=== PATIENT | male | born 1965 | race Caucasian/White ===

== ENCOUNTER → 2024-07-09 07:07 | Outpatient (REF) | payer BC, SELFPAY ==
[2024-07-09 08:53] LABS: % Basophils 0.7 % (0-2); % Eosinophils 4.5 % (0-6); % Immature Granulocytes 0.7 % (0-0.5); % Monocytes 9.5 % (1.7-9.3); % Neutrophils 68.6 % (42.2-75.2); Absolute Basophils 0.1 10^3/uL (0-0.2); Absolute Eosinophils 0.3 10^3/uL (0-0.7); Absolute Immature Granulocytes 0.1 10^3/uL (0-0.05); Absolute Lymphocytes 1.1 10^3/uL (1.2-3.4); Absolute Monocytes 0.6 10^3/uL (0.1-0.6); Absolute Neutrophils 4.6 10^3/uL (1.4-6.5); Hematocrit 46.9 % (39.0-52.0); Hemoglobin 15.8 g/dL (13.0-18.0); Mean Corp Hgb Conc. 33.7 g/dL (33.0-37.0); Mean Corpuscular Hgb 29.5 pg (27.0-31.0); Mean Corpuscular Volume 87.7 fL (80.0-94.0); Mean Platelet Volume 9.5 fL (7.4-10.4); Nucleated Red Blood Cells % 0 % (-); Platelet Count 268 10^3/uL (130-400); Red Blood Cell Count 5.35 10^6/uL (4.70-6.10); Red Cell Dist. Width 13.1 % (11.5-14.5); White Blood Cell Count 6.7 10^3/uL (4.8-10.8)
[2024-07-09 09:30] LABS: Glycohemoglobin (HgbA1c) 5.4 % (4.0-5.6)
[2024-07-09 10:31] LABS: Microalbumin, Random Urine 1.6 mg/dl (0.6-1.7); Microalbumin/creatinine Ratio 6.3 mg/g
[2024-07-09 11:33] LABS: ALT (SGPT) 43 U/L (0-50); AST (SGOT) 33 U/L (17-59); Albumin 4.1 g/dl (3.5-5.0); Alkaline Phosphatase 63 U/L (38-126); Blood Urea Nitrogen 17 mg/dl (9-20); Calcium 8.9 mg/dl (8.4-10.2); Carbon Dioxide 29 mmol/L (22-30); Chloride 103 mmol/L (98-107); Glucose 86 mg/dl (70-99); HDL Cholesterol 43 mg/dl; LDL Cholesterol, Calculated 152 mg/dl; Potassium 4.7 mmol/L (3.5-5.1); Sodium 144 mmol/L (135-145); Total Bilirubin 0.7 mg/dl (0.2-1.3); Total Cholesterol 228 mg/dl (50-199); Total Protein 7.5 g/dl (6.3-8.2); Triglyceride 165 mg/dl (10-149); Very Low Density Lipoprotein 33 mg/dl (0-30); eGFR > 60.00
== END ==
LOC: REG 07:07
PROVIDERS: ATTENDING PHYSICIAN Family Medicine
DX: E03.9 Hypothyroidism, unspecified (principal); E11.9 Type 2 diabetes mellitus without complications; E78.5 Hyperlipidemia, unspecified; I10 Essential (primary) hypertension; R53.83 Other fatigue
CPT/HCPCS: 36415; 80053; 80061; 82043; 82570; 83036; 84443; 85025

== ENCOUNTER → 2024-07-21 16:10 | Outpatient (REF) | payer BC, SELFPAY | LOC: RAD 16:10 | PROVIDERS: ATTENDING PHYSICIAN Family Medicine | DX: K63.2 Fistula of intestine (principal) | CPT/HCPCS: 74178; Q9967 ==

== ENCOUNTER → 2024-07-31 10:36 | Outpatient (REF) | payer BC, SELFPAY ==
[2024-07-31 12:16] LABS: TSH Reflex To Free T4 2.39 uIU/ml (0.47-4.68)
== END ==
LOC: REG 10:36
PROVIDERS: ATTENDING PHYSICIAN Internal Medicine; FAMILY PHYSICIAN Family Medicine
DX: E66.01 Morbid (severe) obesity due to excess calories (principal)
CPT/HCPCS: 36415; 84443

== ENCOUNTER → 2024-08-01 09:19 | Outpatient (REF) | payer BC, SELFPAY ==
--- NOTE | 2024-08-01 10:26 | CARDSERVLU ---
Echocardiogram with Lumason completed after protocol screening completed. Allergies verified.
Patent IV site: _Left AC_
IV site flushed with 0.9% NaCl pre and post administration.
Diluted bolus method utilized to enhance visualization of ventricular zhang.
Total volume given: __3.0_ mL
Patient tolerated all procedures well without complications.
#22 dahlia placed Left AC. Lumason given. INT d/c'd. pressure held. No bleeding noted.
== END ==
LOC: RCS 09:19
PROVIDERS: ATTENDING PHYSICIAN Internal Medicine; FAMILY PHYSICIAN Family Medicine
DX: R01.1 Cardiac murmur, unspecified (principal)
CPT/HCPCS: 93306; Q9950

== ENCOUNTER 2024-08-02 17:59 | Inpatient (IN) | payer BC, SELFPAY ==
[2024-08-02] VITALS (8 sets, daily range): BP systolic 85–147; BP diastolic 31–82; BMI 49.8
[2024-08-02 14:00] LABS: Hematocrit 46.8 % (39.0-52.0); Mean Corp Hgb Conc. 34.2 g/dL (33.0-37.0); Mean Corpuscular Hgb 28.9 pg (27.0-31.0); Mean Corpuscular Volume 84.5 fL (80.0-94.0); Mean Platelet Volume 9.1 fL (7.4-10.4); Platelet Count 246 10^3/uL (130-400); Red Blood Cell Count 5.54 10^6/uL (4.70-6.10); Red Cell Dist. Width 12.7 % (11.5-14.5); White Blood Cell Count 23.2 10^3/uL (4.8-10.8)
[2024-08-02 14:08] LABS: ALT (SGPT) 35 U/L (0-50); AST (SGOT) 33 U/L (17-59); Albumin 4.5 g/dl (3.5-5.0); Alkaline Phosphatase 65 U/L (38-126); Blood Urea Nitrogen 14 mg/dl (9-20); Calcium 8.8 mg/dl (8.4-10.2); Carbon Dioxide 25 mmol/L (22-30); Chloride 98 mmol/L (98-107); Glucose 92 mg/dl (70-99); Sodium 133 mmol/L (135-145); Total Bilirubin 1.4 mg/dl (0.2-1.3); Total Protein 7.9 g/dl (6.3-8.2); eGFR > 60.00
[2024-08-02 14:22] LABS: % Basophils 0.3 % (0-2); % Eosinophils 0.1 % (0-6); % Immature Granulocytes 0.8 % (0-0.5); % Lymphocytes 1.9 % (20.5-51.1); % Monocytes 5.4 % (1.7-9.3); % Neutrophils 91.5 % (42.2-75.2); Absolute Basophils 0.1 10^3/uL (0-0.2); Absolute Immature Granulocytes 0.2 10^3/uL (0-0.05); Absolute Lymphocytes 0.4 10^3/uL (1.2-3.4); Absolute Monocytes 1.2 10^3/uL (0.1-0.6); Absolute Neutrophils 21.2 10^3/uL (1.4-6.5); Nucleated Red Blood Cells % 0 % (-)
[2024-08-02 14:34] LABS: Troponin I < 0.012 ng/ml
--- NOTE | 2024-08-02 16:55 | ED.GENMED ---
History of Present Illness
General
Chief Complaint: Dizziness
Source: patient
Exam Limitations: none
Time Seen by Provider: 08/02/24 15:17
Nursing documentation reviewed up to this point in time: agreed with
History of Present Illness
History of Present Illness:
59-year-old male with past medical history of hypertension, ANNE MARIE presenting to the emergency department today with concerns of generalized weakness fatigue chills subjective fevers as well as left leg swelling and redness worsening over the past 24
hours.
Past History
Past History
ED Past Medical History: HTN and Other (Osteoarthritis); Negative CAD or Cancer
ED Past Surgical History: Orthopedic (Laminectomy)
Social History
Tobacco: Non-smoker
Alcohol: None
Drug: None
Personal:
Living: with family
Employment: Employed
Family History
Family History: Other (CHF)
Review of Systems
Review of Systems
Allergies reviewed?: Yes
All Other Systems: ROS reviewed and negative except as documented in HPI and ROS
Phy Exam
Physical Exam
Physical Exam:
GENERAL: Alert , in no apparent distress
EYE: pupils equal and reactive
NECK: Supple, no significant adenopathy.
ENT: o/p clr, mmm.
CARDIAC: Regular rate and rhythm .
LUNGS: Clear breath sounds bilaterally, no acute respiratory distress, no wheezes/rales/rhonchi
ABDOMEN: Soft, without focal tenderness, no r/g, no cvat
NEUROLOGICAL: Alert and oriented, no focal neuro deficits
SKIN: Significant redness swelling and warmth to the left leg mainly to the posterior calf but redness spreading to the anterior deutsch and up to the knee. Patient has additional red rash that he claims has been chronic to his thigh. Warm and dry,
skin intact.
MUSCULOSKELETAL: No edema, well perfused.
PSYCH: Normal and appropriate interaction.
Course
Orders/Labs/Results
Orders:
Orders
08/02/24 13:19
EKG [Electrocardiogram (*1)] Urgent
Reason for Study: Shortness of Breath
EKG- Treatment ONCE
08/02/24 13:36
Complete Blood Count/With Diff Urgent
Comprehensive Metabolic Panel Urgent
Troponin I Urgent
08/02/24 15:57
Lactic Acid Urgent
Blood Culture Q30M
BE Source: Blood/Venous
Specimen Description:
Blood Culture Q30M
BE Source: Blood/Venous
Specimen Description:
08/02/24 16:23
Vancomycin [Vancocin] 2,000 mg 0.9% Sodium Chloride 500 ml [Nss] 500 ml IV NOW
Abnormal Lab Results
08/02/24
13:36
WBC 23.2 H 10^3/uL
(4.8-10.8)
Abs Immat Gran (auto) 0.2 H 10^3/uL
(0-0.05)
Absolute Neuts (auto) 21.2 H 10^3/uL
(1.4-6.5)
Absolute Lymphs (auto) 0.4 L 10^3/uL
(1.2-3.4)
Absolute Monos (auto) 1.2 H 10^3/uL
(0.1-0.6)
Immature Gran % 0.8 H %
(0-0.5)
Neutrophils % 91.5 H %
(42.2-75.2)
Lymphocytes % 1.9 L %
(20.5-51.1)
Sodium 133 L mmol/L
(135-145)
Total Bilirubin 1.4 H mg/dl
(0.2-1.3)
08/02/24 13:36
08/02/24 13:36
Vital Signs
Initial and Last Documented VS:
Initial Vital Signs
Temp Pulse Resp BP Pulse Ox
98.3 F 98 18 138/78 98
08/02/24 13:27 08/02/24 13:27 08/02/24 13:27 08/02/24 13:27 08/02/24 13:27
Last Documented Vital Signs
Temp Pulse Resp BP Pulse Ox
98.7 F 94 28 147/67 95
08/02/24 16:58 08/02/24 17:17 08/02/24 17:17 08/02/24 16:58 08/02/24 17:17
MDM/Problems Addressed
MDM/Problems Addressed:
59-year-old male with past medical history of hypertension, ANNE MARIE presenting to the emergency department today with concerns of generalized weakness fatigue chills subjective fevers as well as left leg swelling and redness worsening over the past 24
hours. Upon arrival patient is afebrile heart rate in the high 90s initial blood pressure was in normal range but per my assessment blood pressure in the 80s over 30s. Patient comes to feel somewhat lightheaded. Left leg is significantly red and
swollen. Appear to be consistent with cellulitis. He claims that he is had cellulitis in the past. Patient started on IV antibiotics and plan to be admitted concerning patient with significant symptoms and altered vital signs secondary to likely
skin infection.
*Critical Care Note
Total Time (30-74mins, 75-104mins- exclusive of procedures): Not Applicable
ED Attending Note
-
Portions of this chart may have been created with voice recognition software.� Occasional wrong word or��sound alike� substitutions may have occurred due to the inherent limitations of voice recognition software.
Discharge Plan
Departure
Patient Disposition: Admit
Date of Disposition: 08/02/24
Time of Disposition: 16:59
Admit to: Med/Surg
Admit to doctor: Viiv
Presentation/result/management discussed w/ accepting MD/DO: Hospitalist
Patient with high blood pressure during this ER visit?: No
Condition: Good
Covid-19: Not Applicable
Discharge Problem:
Cellulitis
Prescriptions:
No Action
furosemide 40 mg Tablet
40 mg PO DAILY
ketoconazole 2 % Cream
1 applic TOPICAL DAILY
Rx Instructions:
under stomach
rosuvastatin 10 mg Tablet
10 mg PO DAILY
Referrals:
Jonathan Davis, [Family Provider] -
Interventions
Interventions:
*Risk Screen - Suicide Last Done: 08/02/24 13:27
*General Assessment Last Done: 08/02/24 13:27
*Neglect/Abuse Screening Last Done: 08/02/24 13:27
ED- Fall Risk Assessment Last Done: 08/02/24 16:59
*ED COVID-19 Vaccine History Last Done: 08/02/24 13:27
ED- Neurological Assessment Last Done: 08/02/24 16:59
ED Swallowing Screen Last Done: 08/02/24 16:59
Discharge Date and Time
Print Language: JAPANESE
[2024-08-02] MEDS: VANCOCIN 540 MG IV (16:56)
[2024-08-02 17:11] LABS: Lactic Acid 1.1 mmol/L (0.7-2.0)
--- NOTE | 2024-08-02 17:35 | HPS.HSE ---
Addendum entered and electronically signed by Dustin Campbell MD 08/02/24 18:15:
I saw and examined the patient.
The [employer]NA[employer] or PA's note was reviewed and I agree with the note.
Comment: 59-year-old male past medical history of morbid obesity, hypertension, hyperlipidemia, recent drainage of the lower abdominal fat pad resolving ulcer with antibiotics 1 month ago, now coming in for chills, left lower extremity pain, found
to have erythema and tenderness at the site. Patient has had multiple episodes of cellulitis in the past, acknowledges scratching quite often. Associate symptoms include dizziness which prompted hospital evaluation. Recent medications include
furosemide and statin that was started 2 days ago. Hypertensive upon examination, white count 23.2, sodium 133, total bilirubin 1.4, no right upper quadrant tenderness. Lactate 1.1. Exam notable for pitting edema of the bilateral lower
extremities as well as as significant erythema to the mid deutsch. Further bilateral inguinal and lower abdominal folds with rash, no obvious active infectious source, drainage, cellulitis.
Plan�received IV bolus, can hold for now. Hold Lasix. Continue cefazolin. Follow-up cultures. Follow line of demarcation. Should have follow-up with surgery, abdominal imaging for previous drainage site on the abdomen. Can give nystatin powder
for abdominal folds. Educated on weight loss. Will need sleep study outpatient. Also f/u MRI outpatient of the liver to evaluate ? Hemangioma
Original Note:
Family Physician
-
Family Physician: Jonathan Davis
Chief Complaint
-
Left lower extremity pain
History of Present Illness
Patient is a 59 y/o male past medical history of morbid obesity, hypertension and hyperlipidemia who presents with increased left lower extremity pain and dizziness. Patient reports difficulty with lower extremity edema, and prior episodes of
cellulitis in the past. Last night he developed significant chills, and this morning his left lower extremity was extremity was extremely painful. He reports associated dizziness which prompted him to come to the emergency department for
evaluation. Further discussions with patient's revealed he recently had an allergic reaction to Wegovy which he started for weight loss. He also saw a Cotton Baler earlier this week who started him on furosemide for high blood pressure and
edema, and rosuvastatin for high cholesterol.
Medical History
Past Medical History
Past Medical History: Reports Other
Additional Past Medical History:
Essential Hypertension
Hyperlipidemia
Morbid Obesity
Past Surgical History: Reports Other
Additional Past Surgical History:
Bilateral Knee Replacements
L2-L4 Laminectomy
Left Shoulder Surgery
Social History
Tobacco: Non-smoker
Alcohol: None
Personal:
Living: With Family
Family History
Family History: Not pertinent
Allergies / Home Medications
Allergies reflects when Allergies were last updated in [facility].
Home Medications with original date entered in [facility]
Allergy/Medication List:
Allergies
Allergy/AdvReac Type Severity Reaction Status Date / Time
pollen extracts Allergy Nasal Verified 08/02/24 13:27
congestion,
watery eyes
Home Medications
furosemide 40 mg tablet 40 mg PO DAILY 08/02/24
ketoconazole 2 % topical cream 1 applic topical DAILY 08/02/24
rosuvastatin 10 mg tablet 10 mg PO DAILY 08/02/24
Review of Systems
-
A 12 point ROS was completed and negative except as noted: Yes
Constitutional: Reports Chills
Respiratory: Reports Trouble Breathing (Intermittent dypnea on exertion); Denies Cough
Cardiac: Denies Chest Pain or Palpitations
Physical Exam
Vital Signs
Vital Signs
Temp Pulse Resp BP Pulse Ox
98.7 F 94 28 147/67 95
08/02/24 16:58 08/02/24 17:17 08/02/24 17:17 08/02/24 16:58 08/02/24 17:17
Physical Exam
General: Comfortable, Conversant and Morbidly Obese
HEENT: Anicteric and Moist mucous membranes
Respiratory: Clear and Non Labored Respirations
Cardiac: S1/S2, Regular Rhythm and Murmur (2/6 systolic murmur)
GI: Soft, Non Tender and Other (Protuberant)
Rectal: Deferred by Provider
Musculoskeletal: No Clubbing, No Cyanosis and Other (+1 pitting edema bilateral lower extremities, left greater than right)
Skin: Warm, Dry and Other (Significant erythema left lower extremity with increased warmth to touch; Bilateral inguinal folds with dark red/purple rash which patient reports is chronic)
Neuro: Awake, Alert, Oriented and Nonfocal/grossly intact
Psych: Calm
Laboratory Results
-
08/02/24 13:36
08/02/24 13:36
Laboratory Results
Lactic Acid 1.1 mmol/L (0.7-2.0) 08/02/24 15:57
Total Bilirubin 1.4 mg/dl (0.2-1.3) H 08/02/24 13:36
AST 33 U/L (17-59) 08/02/24 13:36
ALT 35 U/L (0-50) 08/02/24 13:36
Alkaline Phosphatase 65 U/L (38-126) 08/02/24 13:36
Troponin I < 0.012 ng/ml 08/02/24 13:36
Data Reviewed
-
Lab Data: Labs Reviewed by me
Old Records: Reviewed
Impression/Plan
-
Sepsis secondary to Left Lower Extremity Cellulitis
-Continue Ancef
Essential Hypertension / Lower Extremity Edema
-Hold Lasix
-Monitor Is&Os and Daily Weights
Hyperlipidemia
-Continue Crestor
Morbid Obesity
-Patient had recent allergic reaction to Wegovy
-Encourage weight loss
-Affects all aspects of care
DVT proph: Lovenox
Code Status:Full Code
--- NOTE | 2024-08-02 19:30 | PTCARENOTE ---
Pt arrived on unit from ED via stretcher. Pt ambulated to room with a standby assist of 1 person. Pt A&Ox3. Oriented to unit. Call irwin within reach. Care ongoing.
[2024-08-02] MEDS: LOVENOX 40 MG SC (21:02)
[2024-08-02] MEDS: ANCEF 10 IV (21:03)
[2024-08-02] MEDS: DESENEX/MITRAZOL/ZEASORB 1 APPLIC TOPICAL (21:03)
[2024-08-03 03:00] VITALS: BP 143/76
[2024-08-03] MEDS: ANCEF 10 IV ×3 (04:53→22:18)
[2024-08-03 06:00] VITALS: BMI 49.6
[2024-08-03 06:33] LABS: Hematocrit 40.1 % (39.0-52.0); Hemoglobin 13.8 g/dL (13.0-18.0); Mean Corp Hgb Conc. 34.4 g/dL (33.0-37.0); Mean Corpuscular Hgb 29.3 pg (27.0-31.0); Mean Corpuscular Volume 85.1 fL (80.0-94.0); Mean Platelet Volume 9.5 fL (7.4-10.4); Platelet Count 204 10^3/uL (130-400); Red Blood Cell Count 4.71 10^6/uL (4.70-6.10); Red Cell Dist. Width 12.8 % (11.5-14.5); White Blood Cell Count 14.2 10^3/uL (4.8-10.8)
[2024-08-03 07:00] VITALS: BP 147/64
[2024-08-03 07:04] LABS: ALT (SGPT) 24 U/L (0-50); AST (SGOT) 25 U/L (17-59); Albumin 3.7 g/dl (3.5-5.0); Alkaline Phosphatase 60 U/L (38-126); Blood Urea Nitrogen 13 mg/dl (9-20); Carbon Dioxide 26 mmol/L (22-30); Chloride 98 mmol/L (98-107); Estimated Creatinine Clearance 110 ml/min; Glucose 95 mg/dl (70-99); Potassium 3.3 mmol/L (3.5-5.1); Sodium 133 mmol/L (135-145); Total Bilirubin 0.7 mg/dl (0.2-1.3); Total Protein 6.7 g/dl (6.3-8.2); eGFR > 60.00
[2024-08-03] MEDS: CRESTOR 10 MG PO (07:37)
[2024-08-03] MEDS: DESENEX/MITRAZOL/ZEASORB 1 APPLIC TOPICAL ×2 (07:37→22:17)
[2024-08-03] MEDS: KCL ELIXIR 40 MEQ PO (10:04)
[2024-08-03 11:00] VITALS: BP 127/75
--- NOTE | 2024-08-03 13:14 | W.PN.HOSP.TC ---
Today's Communication/Plan
-
Monitor improvement of cellulitis with IV antibiotics
Benadryl for itching
Assessment / Plan
Assessment / Plan
General: Comfortable, Conversant and Morbidly Obese
HEENT: Anicteric and Moist mucous membranes
Respiratory: Clear and Non Labored Respirations
Cardiac: S1/S2, Regular Rhythm and Murmur (2/6 systolic murmur)
GI: Soft, Non Tender and Other (Protuberant)
Rectal: Deferred by Provider
Musculoskeletal: No Clubbing, No Cyanosis and Other (+1 pitting edema bilateral lower extremities, left greater than right)
Skin: Warm, Dry and Other (Significant erythema left lower extremity with increased warmth to touch - some of the affected cellulitis expanded over the demarcated line, some improved; overall less erythematous today; Bilateral inguinal folds with
dark red/purple rash which patient reports is chronic)
Neuro: Awake, Alert, Oriented and Nonfocal/grossly intact
Psych: Calm
Sepsis secondary to Left Lower Extremity Cellulitis
-Continue Ancef
�Follow-up cultures
� IVF as needed
Essential Hypertension / Lower Extremity Edema
-Hold Lasix
-Monitor Is&Os and Daily Weights
Hyponatremia
� Mild
Continue to monitor with resuscitation
Hypokalemia
� Monitor and replete
Hyperlipidemia
-Continue Crestor
Morbid Obesity
-Patient had recent allergic reaction to Wegovy
-Encourage weight loss
-Affects all aspects of care
�Will benefit from repeat sleep study outpatient
� Follow-up with obesity medicine outpatient
#Continued Diffuse itching
-Okay for Benadryl
-Educated on seeing dermatology as continued to have persistent itching as this will unfortunately lead to further episodes of cellulitis if not controlled
-Moisturizer
�Nystatin powder for abdominal folds
#1.6 cm right lower lobe lesion
� Follow-up MRI outpatient, already scheduled
# Millimeter nodule posterior right lower lobe
� Consistent with benign etiology as unchanged as 2011
DVT proph: Lovenox
Code Status:Full Code
Anticipated Discharge: 24 - 48 hours
Subjective/Interval History
-
Date of Service: August 03, 2024
Still with itching, some of the affected cellulitis expanded over the demarcated line, some improved; overall less erythematous today
Objective Data
-
Labs:
Laboratory Results
08/03/24
05:33
WBC 14.2 H
Hgb 13.8
Hct 40.1
Plt Count 204
Sodium 133 L
Potassium 3.3 L
Chloride 98
Carbon Dioxide 26
BUN 13
Creatinine 0.9
Glucose 95
Calcium 8.0 L
Total Bilirubin 0.7
AST 25
ALT 24
Alkaline Phosphatase 60
Vital Signs:
Vital Signs
Temp Pulse Resp BP Pulse Ox
97.9 F 69 16 127/75 98
08/03/24 11:00 08/03/24 11:00 08/03/24 11:00 08/03/24 11:00 08/03/24 11:00
I&O
08/02/24 08/03/24 08/04/24
06:59 06:59 06:59
Intake Total 240 / 240
Balance 240 / 240
Review of Systems
-
History Source: Patient
All other systems: Not reviewed unless documented
Data Reviewed
-
Labs: Labs Reviewed by me
[2024-08-03] MEDS: BENADRYL 50 MG PO (14:15)
[2024-08-03 15:00] VITALS: BP 133/78
[2024-08-03] MEDS: LOVENOX 40 MG SC (17:17)
[2024-08-03 19:00] VITALS: BP 142/72
[2024-08-03] MEDS: FLUSH (NSS) 2 FLUSH IV (22:21)
[2024-08-03 23:00] VITALS: BP 120/64
[2024-08-04 03:00] VITALS: BP 125/61
[2024-08-04 05:59] VITALS: BMI 49.4
[2024-08-04 06:13] LABS: Hematocrit 40.2 % (39.0-52.0); Hemoglobin 14.1 g/dL (13.0-18.0); Mean Corp Hgb Conc. 35.1 g/dL (33.0-37.0); Mean Corpuscular Hgb 29.7 pg (27.0-31.0); Mean Corpuscular Volume 84.8 fL (80.0-94.0); Mean Platelet Volume 9.5 fL (7.4-10.4); Platelet Count 211 10^3/uL (130-400); Red Blood Cell Count 4.74 10^6/uL (4.70-6.10); Red Cell Dist. Width 12.8 % (11.5-14.5); White Blood Cell Count 8.8 10^3/uL (4.8-10.8)
[2024-08-04] MEDS: FLUSH (NSS) 1 FLUSH IV (06:31)
[2024-08-04] MEDS: ANCEF 10 IV ×3 (06:32→21:34)
[2024-08-04 06:40] LABS: ALT (SGPT) 21 U/L (0-50); AST (SGOT) 23 U/L (17-59); Albumin 3.4 g/dl (3.5-5.0); Alkaline Phosphatase 58 U/L (38-126); Blood Urea Nitrogen 16 mg/dl (9-20); Calcium 8.6 mg/dl (8.4-10.2); Carbon Dioxide 31 mmol/L (22-30); Chloride 101 mmol/L (98-107); Estimated Creatinine Clearance 99 ml/min; Glucose 94 mg/dl (70-99); Potassium 4.2 mmol/L (3.5-5.1); Sodium 136 mmol/L (135-145); Total Bilirubin 0.5 mg/dl (0.2-1.3); Total Protein 6.5 g/dl (6.3-8.2); eGFR > 60.00
[2024-08-04 08:00] VITALS: BP 144/67
[2024-08-04] MEDS: DESENEX/MITRAZOL/ZEASORB 1 APPLIC TOPICAL ×2 (09:31→21:34)
[2024-08-04] MEDS: CRESTOR 10 MG PO (09:31)
[2024-08-04 11:50] VITALS: BP 131/70
--- NOTE | 2024-08-04 11:52 | W.PN.HOSP.TC ---
Today's Communication/Plan
-
Resume Lasix
c/w Ancef
f/w ID recommendations
Assessment / Plan
Assessment / Plan
Physical exam:
General: Comfortable, Conversant and Morbidly Obese
HEENT: Anicteric and Moist mucous membranes
Respiratory: Clear and Non Labored Respirations
Cardiac: S1/S2, Regular Rhythm and Murmur (2/6 systolic murmur)
GI: Soft, Non Tender and Other (Protuberant)
Rectal: Deferred by Provider
Musculoskeletal: No Clubbing, No Cyanosis and Other (+1 pitting edema bilateral lower extremities, left greater than right)
Skin: Warm, Dry and Other ( erythema is not spreading beyond demarcated line, non tender upon palpation).
Neuro: Awake, Alert, Oriented and Nonfocal/grossly intact
Psych: Calm
Sepsis secondary to Left Lower Extremity Cellulitis
-Continue Ancef
�Negative blood culture
No open wounds
WBC is normal now, afebrile
Will ask ID for input
Pt is anxious to go home.
Essential Hypertension / Lower Extremity Edema
-Resume Lasix
-Monitor Is&Os and Daily Weights
Hyponatremia
� Mild
Continue to monitor with resuscitation
Hypokalemia
� Monitor and replete
Hyperlipidemia
-Continue Crestor
Morbid Obesity
-Patient had recent allergic reaction to Wegovy
-Encourage weight loss which has been trying and lost some weight
#Continued Diffuse itching
-Okay for Benadryl
-Educated on seeing dermatology as continued to have persistent itching as this will unfortunately lead to further episodes of cellulitis if not controlled
-Moisturizer
�Nystatin powder for abdominal folds
#1.6 cm right lower lobe lesion
� Follow-up MRI outpatient, already scheduled
# Millimeter nodule posterior right lower lobe
� Consistent with benign etiology as unchanged as 2011
DVT proph: Lovenox
Code Status:Full Code
Total time spent to see the patient, examine the patient, review data and lab results, discuss the treatment plan with patient, nursing staff around 55 minutes
Anticipated Discharge: Within 24 hours
Subjective/Interval History
-
Date of Service: August 04, 2024
He denies worsening pain in leg
No chills or fever over night
Objective Data
-
Labs:
Laboratory Results
08/04/24
05:43
WBC 8.8
Hgb 14.1
Hct 40.2
Plt Count 211
Sodium 136
Potassium 4.2 D
Chloride 101
Carbon Dioxide 31 H
BUN 16
Creatinine 1.0
Glucose 94
Calcium 8.6
Total Bilirubin 0.5
AST 23
ALT 21
Alkaline Phosphatase 58
Vital Signs:
Vital Signs
Temp Pulse Resp BP Pulse Ox
97.9 F 69 16 144/67 98
08/04/24 08:00 08/04/24 08:00 08/04/24 08:00 08/04/24 08:00 08/04/24 08:00
I&O
08/03/24 08/04/24 08/05/24
06:59 06:59 06:59
Intake Total 1740 / 1740
Balance 1740 / 1740
[2024-08-04] MEDS: LASIX 40 MG PO (13:48)
[2024-08-04 15:30] VITALS: BP 97/54
--- NOTE | 2024-08-04 16:27 | CM ---
Alert awake oriented patient who lives with his Luan who lives in a 2 story home with 2 step to enter and 12 steps to bed and bathroom. He is independent in driving and in all activities of daily living.He was offered VN he declined need.
No VN hx / No SNF history
Pharmacy [facility]
PCP DR Davis
PLAN Home Declined VN
--- NOTE | 2024-08-04 17:27 | CON.ID ---
Chief Complaint / Past History
Chief Complaint
LLE cellulitis
History of Present Illness
59 year old male with class III obesity bmi 49 who left lwoer extremtiy pain, redness, swelling and fevers/chill since last night. Also with redness, swelling pruritus under the pannus which is long standing
since arrival here, afebrile, bp stable, wbc initially 23 now 8, plt 211,L shift was present on arrival, cr 1.0, blood cultures no growth to date, on cefazolin 2 gm iv q8 hours
Past History
Additional Past Medical History:
Essential Hypertension
Hyperlipidemia
Additional Past Surgical History:
Bilateral Knee Replacements
L2-L4 Laminectomy
Left Shoulder Surgery
Allergy History:
pollen extracts Allergy (Verified 08/02/24 13:27)
Nasal congestion, watery eyes
Medications Reviewed: Yes
Social History
Tobacco: Non-Smoker
Alcohol: None
Personal:
Family History
Family History: Not Pertinent
Review of Systems
Review of Systems
General: Fever and Chills
All systems: All other systems were reviewed and were negative
Vital Signs
Temp Pulse Resp BP Pulse Ox
97.4 F 74 16 97/54 97
08/04/24 15:30 08/04/24 15:30 08/04/24 15:30 08/04/24 15:30 08/04/24 15:30
Physical Exam
Physical Exam
Constitutional: No Acute Distress
Cardiovascular: Regular Rate and S1/S2; Negative Murmur or Rub
Pulmonary: Clear and Symmetric; Negative Wheezes, Rales or Rhonchi
Gastrointestinal: Soft, Non Tender, Non Distended and Normal Bowel Sounds
Skin: Warm, Dry, Rash (left leg, warm, swollen, tender) and Other (redness, swelling tenderness under the pannus); Negative Jaundice
Lab / Diagnostic Study Results
08/04/24 05:43
08/04/24 05:43
Abs Immat Gran (auto) 0.2 10^3/uL (0-0.05) H 08/02/24 13:36
Absolute Neuts (auto) 21.2 10^3/uL (1.4-6.5) H 08/02/24 13:36
Absolute Lymphs (auto) 0.4 10^3/uL (1.2-3.4) L 08/02/24 13:36
Absolute Monos (auto) 1.2 10^3/uL (0.1-0.6) H 08/02/24 13:36
Absolute Basos (auto) 0.1 10^3/uL (0-0.2) 08/02/24 13:36
Immature Gran % 0.8 % (0-0.5) H 08/02/24 13:36
Neutrophils % 91.5 % (42.2-75.2) H 08/02/24 13:36
Lymphocytes % 1.9 % (20.5-51.1) L 08/02/24 13:36
Monocytes % 5.4 % (1.7-9.3) 08/02/24 13:36
Eosinophils % 0.1 % (0-6) 08/02/24 13:36
Basophils % 0.3 % (0-2) 08/02/24 13:36
Lactic Acid 1.1 mmol/L (0.7-2.0) 08/02/24 15:57
Microbiology Results
Micro:
08/02/24 15:57 Blood Culture - Preliminary
Blood/Venous No Growth in 48 hours- Final report to follow
08/02/24 15:57 Blood Culture - Preliminary
Blood/Venous No Growth in 48 hours- Final report to follow
Assessment / Plan
Nonpurulent cellulitis
Xerosis
Class III obesity
- cefazolin 2 gm IV q6 hours for now
- compression/elevation
- emollients
- will reassess tomorrow, rate of response generally depends on compliance with compression and elevation
Intertrigo - chronic
- qtc 460 - acceptable
- single dose of fluconazole 800 mg now, then likely 400 mg q week x3 more weeks
- continue topicals
[2024-08-04] MEDS: DIFLUCAN 800 MG PO (18:23)
[2024-08-04] MEDS: LOVENOX 40 MG SC (18:24)
[2024-08-04 19:35] VITALS: BP 152/79
[2024-08-04 23:35] VITALS: BP 149/70
[2024-08-05] MEDS: ANCEF 10 IV ×2 (02:57→08:51)
[2024-08-05 03:55] VITALS: BP 164/80
[2024-08-05 06:00] VITALS: BMI 49.2
[2024-08-05 07:29] VITALS: BP 148/86
[2024-08-05] MEDS: LASIX 40 MG PO (08:51)
[2024-08-05] MEDS: CRESTOR 10 MG PO (08:51)
[2024-08-05] MEDS: DESENEX/MITRAZOL/ZEASORB 1 APPLIC TOPICAL (09:00)
[2024-08-05] MEDS: FLUSH (NSS) 2 FLUSH IV (09:01)
--- NOTE | 2024-08-05 09:42 | W.PN.HOSP.TC ---
Today's Communication/Plan
-
dc
Assessment / Plan
Assessment / Plan
Physical exam:
General: Comfortable, Conversant and Morbidly Obese
HEENT: Anicteric and Moist mucous membranes
Respiratory: Clear and Non Labored Respirations
Cardiac: S1/S2, Regular Rhythm and Murmur (2/6 systolic murmur)
GI: Soft, Non Tender and Other (Protuberant)
Rectal: Deferred by Provider
Musculoskeletal: No Clubbing, No Cyanosis and Other (+1 pitting edema bilateral lower extremities, left greater than right)
Skin: Warm, Dry and Other ( erythema is not spreading beyond demarcated line, non tender upon palpation).
Neuro: Awake, Alert, Oriented and Nonfocal/grossly intact
Psych: Calm
Sepsis secondary to Left Lower Extremity Cellulitis
-Continue Ancef, increased to 2 gm
�Negative blood culture
No open wounds
WBC is normal now, afebrile
Appreciate ID input , to finish oral TX for 2 weeks and weekly anti-fungal for 3 weeks.
Essential Hypertension / Lower Extremity Edema
-Resumed Lasix
-Monitored Is&Os and Daily Weights
Hyponatremia
� was Mild
Resolved.
Hypokalemia
replaced.
Hyperlipidemia
-Continue Crestor
Morbid Obesity
-Patient had recent allergic reaction to Wegovy
-Encourage weight loss which has been trying and lost some weight
#Continued Diffuse itching
-Okay for Benadryl
-Educated on seeing dermatology as continued to have persistent itching as this will unfortunately lead to further episodes of cellulitis if not controlled
-Moisturizer
�Nystatin powder for abdominal folds
#1.6 cm right lower lobe lesion
� Follow-up MRI outpatient, already scheduled
# Millimeter nodule posterior right lower lobe
� Consistent with benign etiology as unchanged as 2011
DVT proph: Lovenox
Code Status:Full Code
Total discharge time spent to see the patient, examine the patient, review data and lab results, discuss the discharge plan with patient, ID doctor, nursing staff around 65 minutes
Anticipated Discharge: Today
Subjective/Interval History
-
Date of Service: August 05, 2024
He feels better and no pain in left leg
Objective Data
-
Vital Signs:
Vital Signs
Temp Pulse Resp BP Pulse Ox
97.8 F 66 17 148/86 95
08/05/24 07:29 08/05/24 08:51 08/05/24 07:29 08/05/24 08:51 08/05/24 07:29
I&O
08/04/24 08/05/24 08/06/24
06:59 06:59 06:59
Intake Total 1740 / 1740 1620 / 1620
Balance 1740 / 1740 1620 / 1620
--- NOTE | 2024-08-05 10:14 | W.PN.UPDATE ---
Update Note
Progress Note Update
spoke with hospitalist
can switch to keflex 1000 mg PO QID x14 days
continue fluconazole 400 mg q week x3 more doses
AW
[2024-08-05 11:03] VITALS: BP 131/77
--- NOTE | 2024-08-05 11:31 | CM ---
MD entered order for discharge.
Pt said his Luan .
will drive him home
Offered VN he declined need.
PLAN Home Declined VN
--- NOTE | 2024-08-05 13:56 | W.DCSUMMARY ---
Discharge Summary
Discharge Data
Date of Admission: 08/02/24
Date of Discharge: 08/05/24
-
Pending Results: No
Hospital Course
59 years old male presented with chills, left lower extremity pain and redness. Patient was found to have left lower extremity cellulitis. Patient reported history of multiple episodes of cellulitis in the past with skin pruritus that he did
scratching quite often. Patient was given IV Cefazolin and admitted to the hospital. He did not have fevers, white blood cell count went to normal level. His cellulitis looked unchanged and ID was consulted. Patient was diagnosed with nonpurulent
cellulitis, Xerosis and chronic intertrigo. He was started on high dose Cefazolin due to patient's weight. His left leg was elevated with application of a compression dressing to help with swelling and edema, subsequently the erythema started to
subside and recession of the redness with resolution of the swelling. Patient did not have tenderness in left lower extremity. He was given fluconazole one time dose then weekly dose for 3 more weeks for intertrigo. Patient was counseled regarding
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 Infectious disease doctor gave recommendations for antibiotic therapy. Discharge instructions were discussed with patient and his
over the phone. Patient remained hemodynamically stable and was discharged home in stable condition.
Discharge Plan
-
Patient Disposition: Home (Routine Discharge)
Discharge Diagnosis/Procedures: Cellulitis
You were seen by ID doctor. Take Keflex 2 ( capsules or tablets) four times a day for 2 weeks, take Fluconazole ( anti-fungal) 400 mg every Sunday for 3 times.
Diet: As tolerated
Referrals:
Jonathan Davis DO [Family Provider] - in one to two weeks
Chhaya Hirsch MD [Active] - (As needed)
Prescriptions:
New
cephalexin 500 mg capsule
1,000 mg PO Q6H Qty: 112 0RF
fluconazole 200 mg tablet
400 mg PO WEEKLY Qty: 6 0RF
Rx Instructions:
2 tablets every Sunday for 3 weeks only
Saccharomyces boulardii [Florastor] 250 mg capsule
250 mg PO BID Qty: 28 0RF
Continued
furosemide 40 mg Tablet
40 mg PO DAILY
ketoconazole 2 % Cream
1 applic TOPICAL DAILY
Rx Instructions:
under stomach
rosuvastatin 10 mg Tablet
10 mg PO DAILY
Discharge Orders:
Discharge Patient (As Directed); Ordered 08/05/24
Ordered By: Jennifer Merlos
Discharge Date and Time
Discharge Date/Time: 08/05/24 11:45
Print Language: HEBREW
== END 2024-08-05 11:45 | disposition home or self-care (01) | DRG 872 ==
LOC: 3 WEST ACU 17:59
PROVIDERS: Emergency Medicine; Physician Assistant; Physician Assistant Medical; ADMITTING PHYSICIAN Internal Medicine; ATTENDING PHYSICIAN Internal Medicine; CONSULT PHYSICIAN Student in an Organized Health Care Education/Training Program; EMERGENCY PHYSICIAN Emergency Medicine; FAMILY PHYSICIAN Family Medicine
DX: A41.9 Sepsis, unspecified organism (principal); L03.116 Cellulitis of left lower limb; Z68.42 Body mass index [BMI] 45.0-49.9, adult; E87.1 Hypo-osmolality and hyponatremia; E66.01 Morbid (severe) obesity due to excess calories; E87.6 Hypokalemia; L30.4 Erythema intertrigo; I10 Essential (primary) hypertension; E78.5 Hyperlipidemia, unspecified
CPT/HCPCS: 80053; 83605; 84484; 85025; 85027; 87040; 93005; 96365; 96366; 99284

== ENCOUNTER → 2024-08-28 07:07 | Outpatient (REF) | payer BC, SELFPAY ==
[2024-08-28 08:11] LABS: % Basophils 0.4 % (0-2); % Eosinophils 7.9 % (0-6); % Immature Granulocytes 0.6 % (0-0.5); % Lymphocytes 15.9 % (20.5-51.1); % Monocytes 12.1 % (1.7-9.3); % Neutrophils 63.1 % (42.2-75.2); Absolute Eosinophils 0.4 10^3/uL (0-0.7); Absolute Lymphocytes 0.8 10^3/uL (1.2-3.4); Absolute Monocytes 0.6 10^3/uL (0.1-0.6); Absolute Neutrophils 3.3 10^3/uL (1.4-6.5); Hematocrit 47.6 % (39.0-52.0); Hemoglobin 16.2 g/dL (13.0-18.0); Mean Corpuscular Volume 85.2 fL (80.0-94.0); Mean Platelet Volume 9.9 fL (7.4-10.4); Nucleated Red Blood Cells % 0 % (-); Platelet Count 215 10^3/uL (130-400); Red Blood Cell Count 5.59 10^6/uL (4.70-6.10); Red Cell Dist. Width 12.6 % (11.5-14.5); White Blood Cell Count 5.2 10^3/uL (4.8-10.8)
[2024-08-28 09:09] LABS: ALT (SGPT) 64 U/L (0-50); AST (SGOT) 41 U/L (17-59); Albumin 4.3 g/dl (3.5-5.0); Alkaline Phosphatase 61 U/L (38-126); Blood Urea Nitrogen 19 mg/dl (9-20); Calcium 9.1 mg/dl (8.4-10.2); Carbon Dioxide 32 mmol/L (22-30); Chloride 97 mmol/L (98-107); Glucose 88 mg/dl (70-99); HDL Cholesterol 34 mg/dl; LDL Cholesterol, Calculated 60 mg/dl; Potassium 3.8 mmol/L (3.5-5.1); Sodium 139 mmol/L (135-145); Total Bilirubin 1.1 mg/dl (0.2-1.3); Total Cholesterol 118 mg/dl (50-199); Total Protein 7.3 g/dl (6.3-8.2); Triglyceride 120 mg/dl (10-149); Very Low Density Lipoprotein 24 mg/dl (0-30); eGFR > 60.00
[2024-08-28 09:17] LABS: PSA, Total - Screen 1.78 ng/ml (0.0-4.0); TSH 2.71 uIU/ml (0.47-4.68)
== END ==
LOC: REG 07:07
PROVIDERS: ATTENDING PHYSICIAN Family Medicine
DX: R60.9 Edema, unspecified (principal); I10 Essential (primary) hypertension; E78.2 Mixed hyperlipidemia
CPT/HCPCS: 36415; 80053; 80061; 84443; 85025; G0103

== ENCOUNTER → 2024-10-07 07:06 | Outpatient (REF) | payer BC, SELFPAY ==
[2024-10-07 08:22] LABS: % Basophils 0.3 % (0-2); % Eosinophils 2.5 % (0-6); % Immature Granulocytes 1.6 % (0-0.5); % Monocytes 9.7 % (1.7-9.3); % Neutrophils 71.9 % (42.2-75.2); Absolute Eosinophils 0.2 10^3/uL (0-0.7); Absolute Immature Granulocytes 0.1 10^3/uL (0-0.05); Absolute Lymphocytes 0.9 10^3/uL (1.2-3.4); Absolute Monocytes 0.7 10^3/uL (0.1-0.6); Absolute Neutrophils 4.8 10^3/uL (1.4-6.5); Hematocrit 43.6 % (39.0-52.0); Hemoglobin 15.1 g/dL (13.0-18.0); Mean Corp Hgb Conc. 34.6 g/dL (33.0-37.0); Mean Corpuscular Hgb 29.2 pg (27.0-31.0); Mean Corpuscular Volume 84.2 fL (80.0-94.0); Mean Platelet Volume 9.8 fL (7.4-10.4); Nucleated Red Blood Cells % 0 % (-); Platelet Count 240 10^3/uL (130-400); Red Blood Cell Count 5.18 10^6/uL (4.70-6.10); Red Cell Dist. Width 12.9 % (11.5-14.5); White Blood Cell Count 6.7 10^3/uL (4.8-10.8)
[2024-10-07 08:50] LABS: ALT (SGPT) 43 U/L (0-50); AST (SGOT) 31 U/L (17-59); Alkaline Phosphatase 68 U/L (38-126); Blood Urea Nitrogen 12 mg/dl (9-20); Calcium 9.5 mg/dl (8.4-10.2); Carbon Dioxide 29 mmol/L (22-30); Chloride 99 mmol/L (98-107); Glucose 80 mg/dl (70-99); Potassium 3.6 mmol/L (3.5-5.1); Sodium 137 mmol/L (135-145); Total Bilirubin 0.9 mg/dl (0.2-1.3); Total Protein 6.8 g/dl (6.3-8.2); Uric Acid 8.9 mg/dl (3.5-8.5); eGFR > 60.00
[2024-10-07 09:15] LABS: Glycohemoglobin (HgbA1c) 5.4 % (4.0-5.6); TSH Reflex To Free T4 2.59 uIU/ml (0.47-4.68)
[2024-10-08 16:49] LABS: Insulin, Random 8 uIU/mL
== END ==
LOC: REG 07:06
PROVIDERS: ATTENDING PHYSICIAN Physician Assistant; FAMILY PHYSICIAN Family Medicine
DX: Z13.1 Encounter for screening for diabetes mellitus (principal); E88.810 Metabolic syndrome; E78.2 Mixed hyperlipidemia; I10 Essential (primary) hypertension; E66.01 Morbid (severe) obesity due to excess calories
CPT/HCPCS: 36415; 80053; 83036; 83525; 83735; 84443; 84550; 85025

== ENCOUNTER 2024-10-20 14:07 | Emergency (ER) | payer BC, SELFPAY ==
[2024-10-20 14:12] VITALS: BP 151/76
[2024-10-20 14:37] LABS: % Basophils 0.4 % (0-2); % Eosinophils 2.9 % (0-6); % Immature Granulocytes 0.4 % (0-0.5); % Lymphocytes 9.2 % (20.5-51.1); % Monocytes 8.1 % (1.7-9.3); Absolute Eosinophils 0.3 10^3/uL (0-0.7); Absolute Lymphocytes 0.8 10^3/uL (1.2-3.4); Absolute Monocytes 0.7 10^3/uL (0.1-0.6); Absolute Neutrophils 7.2 10^3/uL (1.4-6.5); Hematocrit 43.1 % (39.0-52.0); Mean Corp Hgb Conc. 34.8 g/dL (33.0-37.0); Mean Corpuscular Hgb 28.7 pg (27.0-31.0); Mean Corpuscular Volume 82.6 fL (80.0-94.0); Mean Platelet Volume 9.2 fL (7.4-10.4); Nucleated Red Blood Cells % 0 % (-); Platelet Count 234 10^3/uL (130-400); Red Blood Cell Count 5.22 10^6/uL (4.70-6.10); Red Cell Dist. Width 13.2 % (11.5-14.5); White Blood Cell Count 9.1 10^3/uL (4.8-10.8)
[2024-10-20 14:53] LABS: ALT (SGPT) 33 U/L (0-50); AST (SGOT) 28 U/L (17-59); Alkaline Phosphatase 61 U/L (38-126); Blood Urea Nitrogen 18 mg/dl (9-20); Calcium 9.6 mg/dl (8.4-10.2); Carbon Dioxide 30 mmol/L (22-30); Chloride 99 mmol/L (98-107); Glucose 104 mg/dl (70-99); Potassium 3.9 mmol/L (3.5-5.1); Sodium 136 mmol/L (135-145); Total Bilirubin 0.8 mg/dl (0.2-1.3); Total Protein 6.8 g/dl (6.3-8.2); eGFR > 60.00
[2024-10-20 15:05] LABS: Troponin I < 0.012 ng/ml
[2024-10-20 16:01] VITALS: BP 149/67
[2024-10-20 17:04] VITALS: BP 144/67; BMI 43.8
--- NOTE | 2024-10-20 17:21 | ED.GENMED ---
History of Present Illness
General
Chief Complaint: Chest Pain
Time Seen by Provider: 10/20/24 17:00
History of Present Illness
History of Present Illness:
59-year-old male presents the emergency department for evaluation of right upper chest wall pain radiating to the scapula for the past week. Pain was mild at first and worsening. No obvious provoking or palliating factors. Not pleuritic in
nature. No upper extremity paresthesias or shortness of breath. Denies any social component. No associated fevers or chills. Notes that he has lost approximately 70 pounds in the last several months due to a dedicated diet and exercise program.
Past History
Past History
ED Past Medical History: HTN and Other (Osteoarthritis); Negative CAD or Cancer
ED Past Surgical History: Orthopedic (Laminectomy)
Social History
Tobacco: Non-smoker
Alcohol: None
Drug: None
Personal:
Living: with family
Employment: Employed
Family History
Family History: Other (CHF)
Review of Systems
Review of Systems
Allergies reviewed?: Yes
All Other Systems: ROS reviewed and negative except as documented in HPI and ROS
Phy Exam
Physical Exam
Physical Exam:
GEN: Well appearing, NAD, WDWN
HEENT: Oral mucosa moist, no scleral icterus
Cardiac: Regular rate and rhythm, 3/6 holosystolic murmur
Lung: No respiratory distress, no tachypnea, lungs clear to auscultation bilaterally
MSK: No gross deformity or injuries. No provoked chest wall tenderness or scapular back tenderness
Skin: Good color, no pallor or jaundice, widespread maculopapular lesions to the anterior and posterior torso as well as the upper arms bilaterally
Neuro: AO x3, moves all extremities freely
Psych: Calm, cooperative
Scores
Heart Score for Chest Pain Patients
STEMI patient?: Not applicable
Course
Orders/Labs/Results
Orders:
Orders
10/20/24 14:11
Electrocardiogram (*1) Stat
Comment: ALREADY DONE IN ED
10/20/24 14:22
Complete Blood Count/With Diff Urgent
Comprehensive Metabolic Panel Urgent
Troponin I Urgent
10/20/24 17:21
CR Chest - 2 Views Urgent
Comment:
Reason For Exam: R upper chest pain
Abnormal Lab Results
10/20/24
14:22
Absolute Neuts (auto) 7.2 H 10^3/uL
(1.4-6.5)
Absolute Lymphs (auto) 0.8 L 10^3/uL
(1.2-3.4)
Absolute Monos (auto) 0.7 H 10^3/uL
(0.1-0.6)
Neutrophils % 79.0 H %
(42.2-75.2)
Lymphocytes % 9.2 L %
(20.5-51.1)
Glucose 104 H mg/dl
(70-99)
10/20/24 14:22
10/20/24 14:22
Vital Signs
Initial and Last Documented VS:
Initial Vital Signs
Temp Pulse Resp BP Pulse Ox
97.9 F 59 20 151/76 98
10/20/24 14:12 10/20/24 14:12 10/20/24 14:12 10/20/24 14:12 10/20/24 14:12
Last Documented Vital Signs
Temp Pulse Resp BP Pulse Ox
97.9 F 53 17 160/70 95
10/20/24 14:12 10/20/24 18:00 10/20/24 18:00 10/20/24 18:00 10/20/24 18:00
MDM/Problems Addressed
MDM/Problems Addressed:
Patient's workup is reassuring. Pain has no obvious modifying factors. May represent a brachial neuritis given the patient's report of right arm heaviness. No focal neurologic deficits. Will trial a course of steroids for supportive care
*Critical Care Note
Total Time (30-74mins, 75-104mins- exclusive of procedures): Not Applicable
ED Attending Note
-
Portions of this chart may have been created with voice recognition software.� Occasional wrong word or��sound alike� substitutions may have occurred due to the inherent limitations of voice recognition software.
Discharge Plan
Departure
Patient Disposition: Home (Routine Discharge)
Date of Disposition: 10/20/24
Time of Disposition: 18:15
Patient with high blood pressure during this ER visit?: No
Discharge Problem:
Brachial neuritis of right upper extremity
Instructions: Radiculopathy of the neck and back (including sciatica)
Prescriptions:
New
methylprednisolone [Medrol (Brayden)] 4 mg tablets,dose pack
See Rx Instructions .ROUTE .COMPLEX Qty: 21 0RF
Rx Instructions:
orally per package directions
No Action
furosemide 40 mg Tablet
40 mg PO DAILY
ketoconazole 2 % Cream
1 applic TOPICAL DAILY
Rx Instructions:
under stomach
rosuvastatin 10 mg Tablet
10 mg PO DAILY
cephalexin 500 mg capsule
1,000 mg PO Q6H Qty: 112 0RF
fluconazole 200 mg tablet
400 mg PO WEEKLY Qty: 6 0RF
Rx Instructions:
2 tablets every Sunday for 3 weeks only
Saccharomyces boulardii [Florastor] 250 mg capsule
250 mg PO BID Qty: 28 0RF
Referrals:
Jonathan Davis DO [Family Provider] -
Interventions
Interventions:
*Risk Screen - Suicide Last Done: 10/20/24 14:12
*General Assessment Last Done: 10/20/24 14:12
*Neglect/Abuse Screening Last Done: 10/20/24 14:12
*ED- Fall Risk Assessment Last Done: 10/20/24 17:04
*ED COVID-19 Vaccine History Last Done: 10/20/24 17:04
*Nursing Disposition Last Done: 10/20/24 18:22
ED- Cardiac Assessment Last Done: 10/20/24 17:04
Discharge Date and Time
Discharge Date/Time: 10/20/24 18:22
Print Language: DANISH
[2024-10-20 18:00] VITALS: BP 160/70
== END 2024-10-20 18:22 | disposition home or self-care (01) ==
LOC: EMR 14:07
PROVIDERS: Emergency Medicine; EMERGENCY PHYSICIAN Emergency Medicine; FAMILY PHYSICIAN Family Medicine
DX: M54.12 Radiculopathy, cervical region (principal); I10 Essential (primary) hypertension; Z82.49 Family history of ischemic heart disease and other diseases of the circulatory system
CPT/HCPCS: 99283; 71046; 80053; 84484; 85025; 93005

== ENCOUNTER → 2024-11-14 12:08 | Outpatient (REF) | payer BC, SELFPAY | LOC: HWRCS 12:08 | PROVIDERS: ATTENDING PHYSICIAN Internal Medicine; FAMILY PHYSICIAN Family Medicine | DX: R07.9 Chest pain, unspecified (principal) | CPT/HCPCS: 78452; 93017; A9500; J2785 ==

== ENCOUNTER 2025-02-12 15:43 | Emergency (ER) | payer BC, SELFPAY ==
--- NOTE | 2025-02-12 17:20 | ED.GENMED ---
History of Present Illness
General
Chief Complaint: Skin Surface Trauma
Source: patient
Exam Limitations: none
Time Seen by Provider: 02/12/25 17:09
History of Present Illness
History of Present Illness:
59-year-old male presents with laceration to right lateral deutsch he sustained today. He cut it on a piece of his grill. He takes a baby aspirin but was having a lot of difficulty getting the bleeding to stop at home. No other complaints at this
time
Past History
Past History
ED Past Medical History: HTN and Other (Osteoarthritis); Negative CAD or Cancer
ED Past Surgical History: Orthopedic (Laminectomy)
Social History
Tobacco: Non-smoker
Alcohol: None
Drug: None
Personal:
Living: with family
Employment: Employed
Family History
Family History: Other (CHF)
Phy Exam
Physical Exam
Physical Exam:
General: Well-appearing male no acute respiratory distress
HEENT: Normocephalic atraumatic
Skin: 2 cm superficial skin tear/flap type laceration to the lateral aspect of the right distal deutsch. No current bleeding. Patient does however have bruises over the arms. is just concerned about his bruisability lately. He bled quite a bit
from this laceration.
Course
Orders/Labs/Results
Orders:
Orders
02/12/25 17:42
Complete Blood Count/With Diff Urgent
Comprehensive Metabolic Panel Urgent
PTT Urgent
Prothrombin Time Urgent
Abnormal Lab Results
02/12/25
17:42
Absolute Neuts (auto) 7.3 H 10^3/uL
(1.4-6.5)
Absolute Monos (auto) 0.9 H 10^3/uL
(0.1-0.6)
Lymphocytes % 13.9 L %
(20.5-51.1)
BUN 24 H mg/dl
(9-20)
02/12/25 17:42
02/12/25 17:42
Vital Signs
Initial and Last Documented VS:
Initial Vital Signs
Temp Pulse Resp Pulse Ox
99.2 F 85 18 98
02/12/25 15:46 02/12/25 15:46 02/12/25 15:46 02/12/25 15:46
Last Documented Vital Signs
Temp Pulse Resp Pulse Ox
99.2 F 85 18 98
02/12/25 15:46 02/12/25 15:46 02/12/25 15:46 02/12/25 17:23
MDM/Problems Addressed
Differential Diagnosis Includes:
Skin tear right lateral deutsch. No current bleeding. Will redress with nonstick gauze and a wrap. Labs pending to check into his bruising and bleeding lately
*Pulse Oximetry
SaO2: 98
Patient hypoxic: no
*Critical Care Note
Total Time (30-74mins, 75-104mins- exclusive of procedures): Not Applicable
Update Note
Update Note:
Labs reviewed platelets normal no abnormal findings in the blood work. Dressing applied to the wound. Stable for
ED Attending Note
-
Portions of this chart may have been created with voice recognition software.� Occasional wrong word or��sound alike� substitutions may have occurred due to the inherent limitations of voice recognition software.
Discharge Plan
Departure
Patient Disposition: Home (Routine Discharge)
Date of Disposition: 02/12/25
Time of Disposition: 18:18
Patient with high blood pressure during this ER visit?: No
Discharge Problem:
Laceration
Instructions: Wound Care (DC)
Prescriptions:
No Action
furosemide 40 mg Tablet
40 mg PO DAILY
ketoconazole 2 % Cream
1 applic TOPICAL DAILY
Rx Instructions:
under stomach
rosuvastatin 10 mg Tablet
10 mg PO DAILY
cephalexin 500 mg capsule
1,000 mg PO Q6H Qty: 112 0RF
fluconazole 200 mg tablet
400 mg PO WEEKLY Qty: 6 0RF
Rx Instructions:
2 tablets every Sunday for 3 weeks only
Saccharomyces boulardii [Florastor] 250 mg capsule
250 mg PO BID Qty: 28 0RF
methylprednisolone [Medrol (Brayden)] 4 mg tablets,dose pack
See Rx Instructions .ROUTE .COMPLEX Qty: 21 0RF
Rx Instructions:
orally per package directions
Referrals:
Jonathan Davis DO [Family Provider, Family Practice]
Activity Restrictions/Additional Instructions:
Change dressing as needed. Follow-up with your doctor. Return if needed otherwise
Interventions
Interventions:
*Risk Screen - Suicide Last Done: 02/12/25 17:15
*Neglect/Abuse Screening Last Done: 02/12/25 17:15
ED-Skin Assessment Last Done: 02/12/25 17:15
Discharge Date and Time
Print Language: KAZAKH
[2025-02-12 17:48] LABS: Hematocrit 42.6 % (39.0-52.0); Hemoglobin 14.7 g/dL (13.0-18.0); Mean Corp Hgb Conc. 34.5 g/dL (33.0-37.0); Mean Corpuscular Volume 84.9 fL (80.0-94.0); Nucleated Red Blood Cells % 0 % (-); Platelet Count 222 10^3/uL (130-400); Red Cell Dist. Width 12.8 % (11.5-14.5)
[2025-02-12 17:58] LABS: INR 0.94; PT 13.1 Sec (11.4-14.6)
[2025-02-12 17:59] LABS: APTT 25.7 Sec (23.4-35.0)
[2025-02-12 18:07] LABS: ALT (SGPT) 35 U/L (0-50); AST (SGOT) 25 U/L (17-59); Albumin 4.1 g/dl (3.5-5.0); Alkaline Phosphatase 46 U/L (38-126); Blood Urea Nitrogen 24 mg/dl (9-20); Calcium 9.3 mg/dl (8.4-10.2); Carbon Dioxide 29 mmol/L (22-30); Chloride 107 mmol/L (98-107); Glucose 91 mg/dl (70-99); Potassium 3.8 mmol/L (3.5-5.1); Sodium 140 mmol/L (135-145); Total Protein 7.1 g/dl (6.3-8.2); eGFR > 60.00
== END 2025-02-12 19:31 | disposition home or self-care (01) ==
LOC: EMR 15:43
PROVIDERS: Physician Assistant; EMERGENCY PHYSICIAN Emergency Medicine; FAMILY PHYSICIAN Family Medicine; OTHER PHYSICIAN Internal Medicine
DX: S81.811A Laceration without foreign body, right lower leg, initial encounter (principal); W45.8XXA Other foreign body or object entering through skin, initial encounter; I10 Essential (primary) hypertension; M19.90 Unspecified osteoarthritis, unspecified site; Z82.49 Family history of ischemic heart disease and other diseases of the circulatory system
CPT/HCPCS: 99283; 80053; 85025; 85610; 85730